=== PATIENT | male | born 1955 | race Caucasian/White ===

== ENCOUNTER 2017-12-18 20:25 | Observation (INO) | payer OTHER ==
[~2017-12-18] VITALS: Ht 193 cm; Wt 114.7 kg
[2017-12-18 21:05] LABS: HEMATOCRIT 40.4 % (38.0-50.0); MCH 30.5 PG (29.0-34.0); MCHC 34.7 G/DL (30.0-36.0); PLATELET COUNT 288 K/uL (156-360); RBC DIS.WIDTH-SD 41.8 % (39-53); RED BLOOD COUNT 4.59 M/uL (4.00-5.50); WHITE BLOOD COUNT 8.5 K/uL (4.1-10.2)
[2017-12-18 21:14] LABS: CHLORIDE 111 mEq/L (99-109); POTASSIUM 3.8 mEq/L (3.7-5.4); SODIUM 143 mEq/L (136-147)
[2017-12-18 21:16] LABS: GLUCOSE 113 mg/dL (70-99)
[2017-12-18 21:20] LABS: CREATININE 1.2 mg/dL (0.6-1.3); GFR ESTIMATE (CALCULATED) > 59 mL/min/ (58.99-99999)
[2017-12-18 21:21] LABS: UREA NITROGEN (BUN) 19 mg/dL (9-23)
[2017-12-18 21:27] LABS: TROP-I INTERPRETATION NEGATIVE; TROPONIN-I 0.02 ng/mL (0.0-0.30)
[2017-12-18 23:44] LABS: TROP-I INTERPRETATION NEGATIVE; TROPONIN-I < 0.01 ng/mL (0.0-0.30)
[2017-12-18] MEDS ORDERED: FENOFIBRATE54 M1 PO (23:52)
[2017-12-18] MEDS ORDERED: MAGNESIUM400 M1 PO (23:52)
[2017-12-18] MEDS ORDERED: LISINOPRIL10 MG PO (23:52)
[2017-12-18] MEDS ORDERED: CENTRUM ADULTS1 EACH PO (23:52)
[2017-12-18] MEDS ORDERED: SYNTHROID150 MCG PO (23:52)
[2017-12-18] MEDS ORDERED: FAMOTIDINE20 MG PO (23:52)
[2017-12-18] MEDS ORDERED: FLOMAX0.4 MG PO (23:52)
[2017-12-18] MEDS ORDERED: TURMERIC500 M2 PO (23:53)
[2017-12-18] MEDS ORDERED: GARLIC100 MG PO (23:53)
[2017-12-18] MEDS ORDERED: ADULT ASPIRIN R81 MG PO (23:53)
[2017-12-18] MEDS ORDERED: METAMUCIL0.52 GM PO ×2 (23:54)
[2017-12-18] MEDS ORDERED: GARCINIA CAMBO1 EACH PO (23:55)
[2017-12-19 02:15] VITALS: BP 142/81
[2017-12-19 03:02] LABS: CREATINE KINASE 139 IU/L (1-294)
[2017-12-19 03:07] LABS: TROP-I INTERPRETATION NEGATIVE; TROPONIN-I < 0.01 ng/mL (0.0-0.30)
[2017-12-19 03:30] LABS: HDL CHOLESTEROL 33 MG/DL (Desirable>=40); LDL CHOLESTEROL 100 mg/dL (Desirable<100); NON-HDL CHOLESTEROL 125 mg/dL (Desirable<160); TOTAL CHOLESTEROL 158 mg/dL (Desirable<200); TRIGLYCERIDES 123 MG/DL (Normal: <150)
[2017-12-19 09:21] VITALS: BP 130/72
[2017-12-19 10:07] LABS: TROP-I INTERPRETATION NEGATIVE; TROPONIN-I < 0.01 ng/mL (0.0-0.30)
== END 2017-12-19 13:44 | disposition home or self-care (01) ==
LOC: EME 20:25 → EDOF 12-19 00:46 → ENRESERV 12-19 00:48 → 5WEST 12-19 01:59
PROVIDERS: Emergency Medicine; Physician Assistant Medical
DX: R07.9 Chest pain, unspecified (principal); R94.31 Abnormal electrocardiogram [ECG] [EKG]; I11.9 Hypertensive heart disease without heart failure; E78.5 Hyperlipidemia, unspecified; F32.9 Major depressive disorder, single episode, unspecified; F41.9 Anxiety disorder, unspecified; Q23.8 Other congenital malformations of aortic and mitral valves; Z85.850 Personal history of malignant neoplasm of thyroid; E89.0 Postprocedural hypothyroidism; N40.0 Benign prostatic hyperplasia without lower urinary tract symptoms; Z87.442 Personal history of urinary calculi; K21.9 Gastro-esophageal reflux disease without esophagitis; Z82.49 Family history of ischemic heart disease and other diseases of the circulatory system; Z82.0 Family history of epilepsy and other diseases of the nervous system; Z79.82 Long term (current) use of aspirin; E66.3 Overweight; Z68.30 Body mass index [BMI] 30.0-30.9, adult
CPT/HCPCS: 71046; 80048; 80061; 82550; 84484; 85027; 85379; 93005; 99281; 99285; G0378

== ENCOUNTER 2017-12-29 09:28 | Day surgery (SDC) | payer OTHER ==
[~2017-12-29] VITALS: Ht 193 cm; Wt 112.9 kg
[~2017-12-29 09:28] MED LIST: ADULT ASPIRIN R81 MG PO; CENTRUM ADULTS1 EACH PO; FAMOTIDINE20 MG PO; FENOFIBRATE54 M1 PO; FLOMAX0.4 MG PO; GARCINIA CAMBO1 EACH PO; GARLIC100 MG PO; GREEN TEA EXTR250 MG PO; LISINOPRIL20 MG PO; MAGNESIUM250 MG PO; METAMUCIL0.52 GM PO; PROBIOTIC1 EAC1 PO; SYNTHROID150 MCG PO; TURMERIC500 M2 PO
== END 2017-12-29 16:35 | disposition home or self-care (01) ==
LOC: CATH 09:28
DX: R94.39 Abnormal result of other cardiovascular function study (principal); R07.9 Chest pain, unspecified; I10 Essential (primary) hypertension; E89.0 Postprocedural hypothyroidism; E78.5 Hyperlipidemia, unspecified; K21.9 Gastro-esophageal reflux disease without esophagitis; Z79.82 Long term (current) use of aspirin
CPT/HCPCS: C1769; C1887; J1644; J2250; J3010; J7040